=== PATIENT | female | born 1990 | race Caucasian/White ===

== ENCOUNTER 2021-09-14 05:19 | Inpatient (IN) | payer OTHER ==
[~2021-09-14] VITALS: Ht 188 cm; Wt 89.8 kg
[~2021-09-14 05:19] MED LIST: PRENATAL FORMU1 EACH PO
[2021-09-14 06:55] LABS: HCT 38.4 % (37.0-47.0); MCH 32.3 pg (25.0-31.0); MCHC 33.9 g/dL (32.0-36.0); MCV 95.5 fL (78.0-100.0); MPV 10.7 fL (6.0-9.5); RBC 4.02 M/uL (4.20-5.40); RDW 14.1 % (11.5-14.0); WBC 8.3 K/uL (4.0-10.5)
[2021-09-14 10:43] LABS: BILIRUBIN NEGATIVE (NEGATIVE); BLOOD NEGATIVE Ery/uL (NEGATIVE); CLARITY CLEAR (CLEAR); COLOR YELLOW (YELLOW); GLUCOSE (U) NORMAL (NORMAL); LEUKOCYTES NEGATIVE Leu/uL (NEGATIVE); NITRITE NEGATIVE (NEGATIVE); PROTEIN NEGATIVE (NEGATIVE); UROBILINOGEN 0.2 mg/dL (0.2-1.0); pH 7.5 (5.0-9.0)
[2021-09-15 07:57] LABS: HCT 33.3 % (37.0-47.0); HGB 11.1 g/dl (12.5-16.0); MCH 32.5 pg (25.0-31.0); MCHC 33.3 g/dL (32.0-36.0); MCV 97.4 fL (78.0-100.0); RBC 3.42 M/uL (4.20-5.40); RDW 14.3 % (11.5-14.0); WBC 12.2 K/uL (4.0-10.5)
== END 2021-09-16 11:15 | disposition home or self-care (01) | DRG 787 ==
LOC: FOB 05:19 → FOD 05:19 → FOB 06:10
PROVIDERS: ADMIT Specialist
PROC: 10D00Z1 Extraction of Products of Conception, Low, Open Approach (ICD-10-PCS; principal; 2021-09-14 07:00)
DX: O32.1XX0 Maternal care for breech presentation, not applicable or unspecified (principal); D62 Acute posthemorrhagic anemia; Z37.0 Single live birth; Z3A.39 39 weeks gestation of pregnancy; O99.02 Anemia complicating childbirth; O99.344 Other mental disorders complicating childbirth; F41.9 Anxiety disorder, unspecified; O99.824 Streptococcus B carrier state complicating childbirth; Z79.899 Other long term (current) drug therapy
CPT/HCPCS: 36415; 81003; 86850; 86900; 86901; J1580; J1885; J2405; J2540; J3010; J7120